=== PATIENT | male | born 1995 | race Hispanic/Latino ===

== ENCOUNTER 2017-01-28 05:51 | Emergency (ER) | payer OTHER ==
[~2017-01-28] VITALS: Ht 175.3 cm; Wt 100.0 kg
[2017-01-28 06:08] VITALS: BP 135/81
[2017-01-28] MEDS ORDERED: ONDANSETRON 4 MG ORAL DISINTEGRATING TAB (S0181) PO ONE (08:30)
[2017-01-28] MEDS ORDERED: ZOFR4TAB3 PO (09:25)
== END 2017-01-28 09:31 | disposition home or self-care (01) ==
LOC: M ED 07:34
DX: R10.84 Generalized abdominal pain (principal); R11.2 Nausea with vomiting, unspecified; R19.7 Diarrhea, unspecified